=== PATIENT | female | born 1965 | race Caucasian/White ===

== ENCOUNTER 2017-09-21 11:21 | Emergency (ER) | payer MEDICAID, OTHER ==
[2017-09-21 11:31] VITALS: BP 145/87; PULSE 73; RESP 20; TEMP 97.8; O2SAT 98
[2017-09-21] MEDS ORDERED: Naproxen 550 mg Tab PO STA (11:51)
--- NOTE | 2017-09-21 11:55 | C.PDOC ---
History Of Present Illness 51yo female, presents to ED with complaints of neck pain, lower back pain and right ankle pain and distal right forearm pain after she slipped and fell prior to arrival. Patient states she slipped on a wet slippery metal surface, landed on her back and might have twisted her ankle in the process. pt did not hit her head. She denies any loss of consciousness, numbness, tingling. She has no other medical complaints. Time Seen by Provider: 09/21/17 11:33 Chief Complaint (Nursing): Back Pain History Per: Patient History/Exam Limitations: no limitations Onset/Duration Of Symptoms: Mins Current Symptoms Are (Timing): Still Present Quality Of Discomfort: "Pain" Previous Symptoms: Prior Surgery Associated Symptoms: None Past Medical History Reviewed: Historical Data, Nursing Documentation, Vital Signs Vital Signs: Last Vital Signs Temp 97.8 F 09/21/17 11:30 Pulse 73 09/21/17 11:30 Resp 20 09/21/17 11:30 BP 145/87 09/21/17 11:30 Pulse Ox 98 09/21/17 13:37 - Medical History PMH: No Chronic Diseases Other Surgeries: lower back surgery Family History: States: No Known Family Hx - Social History Hx Alcohol Use: No Hx Substance Use: No - Immunization History Hx Tetanus Toxoid Vaccination: No Hx Influenza Vaccination: No Hx Pneumococcal Vaccination: No Review Of Systems Cardiovascular: Negative for: Chest Pain, Light Headedness Musculoskeletal: Positive for: Neck Pain, Shoulder Pain (right), Back Pain, Other (right ankle pain) Neurological: Negative for: Weakness, Numbness, Other (tingling) Physical Exam - Physical Exam Additional Physical Exam Comments: Constitutional: No acute distress. talkative, appears comfortable. Head: Normocephalic. Atraumatic. Neck: Supple, Right paracervical and right trapezius tenderness palpated. . Back: no midline vertebral tenderness, +right sciatic notch tenderness. hips and pelvis stable. Musculoskeletal: Tenderness to right trapezius area. FROM of bilateral shoulders , elbows, wrists. Right ankle with mild ecchymosis to the lateral malleolus and diffuse tenderness to lateral malleolar area, No swelling noted. mild swelling and bruising noted to anterior distal right forearm, wrist non tender with from. , Neurologic: Alert, no focal deficits. All sensations intact. Cranial nerves intact. 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 Degenerative changes including osteophyte formation. XR Right Ankle X-Ray: Read By Radiologist Interpretation: No acute fractures or dislocations. Medical Decision Making Medical Decision Making: Impression: Back pain, neck pain, ankle pain s/p fall Plan: XR Lumbar spine Naproxen 550 mg PO XR right ankle XR C-Spine 138 pm xrays neg for acute fracture; pt feeling better after naproxen. pt able to ambulate with mild limp. will d/c with nsaids and muscles relaxant, with pmd and podiatry follow up. Disposition Counseled Patient/Family Regarding: Studies Performed, Diagnosis, Need For Followup, Rx Given - Disposition Referrals: [facility] [Outside] Podiatry Clinic [Outside] Disposition: HOME/ ROUTINE Disposition Time: 13:39 Condition: STABLE Additional Instructions: Please wear [place] bandage on wrist and ankle for support in daytime, remove at night. Apply cold compresses to ankle, wrist and right shoulder area several times a day. Take naproxen (with food) as prescribed. Take muscle relaxant when at home, makes you sleepy. Do not drive or operate any machinery when taking this medicine. Follow up with your own doctor or in medical clinic and with podiatry (for your ankle) in the next few days. You may feel a bit more sore tomorrow. Prescriptions: Cyclobenzaprine [Cyclobenzaprine HCl] 10 mg PO Q8 #9 tab Naproxen 500 mg PO BID #20 tab Instructions: Ankle Sprain (ED), Contusion in Adults (ED) Forms: [facility] (Uzbek), General Discharge Instructions - Clinical Impression Clinical Impression: Fall from slipping on wet surface, Contusion of right forearm, Right ankle sprain, Trapezius muscle strain, Low back pain - PA / AMBULATORY SERVICES REPRESENTATIVE / Resident Statement MD/DO has reviewed & agrees with the documentation as recorded. - Scribe Statement The provider has reviewed the documentation as recorded by the Ludin Cowart Provider Attestation: All medical record entries made by the Ludin were at my direction and personally dictated by me. I have reviewed the chart and agree that the record accurately reflects my personal performance of the history, physical exam, medical decision making, and the department course for this patient. I have also personally directed, reviewed, and agree with the discharge instructions and disposition.
[2017-09-21] MEDS ORDERED: Naproxen 550 mg Tab PO ONE (12:05)
--- NOTE | 2017-09-21 13:06 | RAD ---
PROCEDURE: Radiographs of the Lumbar Spine. HISTORY: pain s/p fall, hx prior sx with screws COMPARISON: None available. FINDINGS: BONES: Posterior lumbar fusion L5-S1. Degenerative changes including small osteophyte formation. No listhesis. No acute displaced fracture identified. DISC SPACES: Unremarkable. OTHER FINDINGS: None. IMPRESSION: Posterior lumbar fusion L5-S1. Degenerative changes including small osteophyte formation.
--- NOTE | 2017-09-21 13:07 | RAD ---
PROCEDURE: Right Ankle Radiographs. HISTORY: s/p fall, pain to lateral malleolus COMPARISON: None available. FINDINGS: BONES: No acute displaced fracture. JOINTS: No dislocation. SOFT TISSUES: Unremarkable. No evidence of radiopaque foreign body. OTHER FINDINGS: None. IMPRESSION: No acute displaced fracture or dislocation identified. If symptoms persist or if there is clinical concern, x-ray follow-up in 7-10 days should be considered.
--- NOTE | 2017-09-21 15:58 | RAD ---
PROCEDURE: Cervical Spine Radiographs. HISTORY: Pain. COMPARISON: None. FINDINGS: BONES: Straightening of the normal cervical lordosis. No fracture. Dens Intact. Anterior mid to inferior cervical spondylosis DISC SPACES: C5-6 and C6-7 disc space narrowing SOFT TISSUES: Normal. No prevertebral soft tissue swelling. OTHER FINDINGS: None. IMPRESSION: No fracture or subluxation. Cervical spine straightening consistent with muscle spasm and/or positioning. Anterior cervical spondylosis with intervening disc space narrowing
== END 2017-09-21 14:05 | disposition home or self-care (01) ==
LOC: C.ER 11:21
DX: S50.11XA Contusion of right forearm, initial encounter (principal); S93.401A Sprain of unspecified ligament of right ankle, initial encounter; S16.1XXA Strain of muscle, fascia and tendon at neck level, initial encounter; W01.0XXA Fall on same level from slipping, tripping and stumbling without subsequent striking against object, initial encounter; M54.5 Low back pain